=== PATIENT | male | born 1945 | race Caucasian/White ===

== ENCOUNTER 2017-12-09 06:02 | Day surgery (SDC) | payer OTHER ==
[2017-12-09] MEDS ORDERED: NA CHLORIDE 0.9% 500 ML ONE (06:37)
[2017-12-09] MEDS ORDERED: HEPA 1000U/500MLS 2,000 UNIT/1,000 ML BAG IV ONE (06:57)
[2017-12-09] MEDS ORDERED: HEPARIN 5000 UNIT/ML 1 ML VIAL ONE (07:36)
[2017-12-09] MEDS ORDERED: LIDOCAINE 1% MPF 2 ML AMPULE ONE (07:36)
[2017-12-09] MEDS ORDERED: MIDAZOLAM HCL 2 MG/2 ML INJ ONE (07:36)
[2017-12-09] MEDS ORDERED: NITROGLYCERIN/D5W 25 MG/250 ML BTL IV ONE (07:37)
[2017-12-09] MEDS ORDERED: NITROGLYCERIN 100 MCG/ML SYR (for cath lab use only) IV ONE (07:37)
[2017-12-09] MEDS ORDERED: NICARDIPINE HCL 25 MG/10 ML IV ONE (07:37)
[2017-12-09] MEDS ORDERED: FENTANYL CITR 100 MCG/2 ML ONE ×2 (07:37→09:23)
[2017-12-09] MEDS ORDERED: ATROPINE SULF 1 MG/10 ML SYR IV ONE (07:38)
[2017-12-09] MEDS ORDERED: NA CHLORIDE 0.9% 50 ML ONE (07:38)
--- NOTE | 2017-12-09 15:31 | OP ---
Surgeon: Kain Welch MD Procedure: Left heart catheterization and coronary angiogram. Findings: The patient has mild disease everywhere. No significant stenosis except in the obtuse mar ginal. It will be a difficult approach if we ever try to do a stent there, a lot of tortuosity. Rel atively small vessel. It is a smooth 74% stenosis. Does not look like an acute coronary syndrome ty pe lesion. Because the patient needs an emergency TURP procedure, we are not going to put a stent in now. We can do it later if he develops symptoms or has definite ischemia on a nuclear stress test i n that region. An LV gram was not done. There was too much ectopy induced by the catheter. His eje ction fraction is known to be normal by echocardiography. Procedure In Detail: The patient was brought to the cardiac production laborer in a fasting state, sedated wit h Versed and fentanyl. Prepared and draped. Right radial approach artery entered using a 21-gauge n eedle, a 0.021 inch diameter guidewire, 6-Polish Terumo sheath, modified Seldinger technique. A radi al cocktail was given consisting of nicardipine, heparin, nitroglycerin. We used a TIG catheter to a ngiogram right coronary, left coronary. We entered the left ventricle, but did not inject dye there. Pressures were impossible to take because of ectopy. We guided the TIG catheter into the ascending aorta using a J-wire and fluoroscopy. At the end of the procedure, decision was made not to stent t he obtuse marginal lesion. Catheter and wires were removed. Sheath removed. The arteriotomy closed with a TR band after the sheath gustavo sandhya. DARRIN/CAM Voice ID: [id number] Report ID: [id number]
== END 2017-12-09 10:58 | disposition home or self-care (01) ==
LOC: OR 06:02 → CCL 10:58
PROVIDERS: ATTEND Internal Medicine
DX: I25.10 Atherosclerotic heart disease of native coronary artery without angina pectoris (principal); F17.210 Nicotine dependence, cigarettes, uncomplicated; Z91.048 Other nonmedicinal substance allergy status
CPT/HCPCS: 93458; C1893; J0583; J1644; J2001; J2250; J3010 ×2

== ENCOUNTER 2017-12-09 16:28 | Inpatient (IN) | payer OTHER ==
[2017-12-09] MEDS ORDERED: LIDOCAINE VISCOUS 2% SOLN 15 ML UDC ONE (17:24)
[2017-12-09] MEDS ORDERED: NACL 0.9% IRR SOLN 2,000 ML IRR ONE (17:25)
[2017-12-09] MEDS ORDERED: FENTANYL CITR 100 MCG/2 ML ONE ×3 (17:32→22:51)
[2017-12-09] MEDS ORDERED: ONDANSETRON 4 MG/2 ML VIAL ONE (17:32)
[2017-12-09] MEDS ORDERED: CEFTRIAXONE/SWI 1gm 1 GM/10 ML SYR ONE (17:32)
[2017-12-09] MEDS ORDERED: NA CHLORIDE 0.9% 500 ML ONE (17:32)
[2017-12-09 18:20] LABS: ALT/SGPT 27 U/L (12-78); AST/SGOT 26 U/L (15-37); Absolute Lymphocytes (CBC) 1.2 K/uL (0.7-4.9); Absolute Monocytes 0.8 K/uL (0.1-1.3); Absolute Neutrophil 7.4 K/uL (1.8-8.0); Albumin 3.4 g/dL (3.4-5.0); Alkaline Phosphatase 62 U/L (45-117); BUN Blood Urea Nitrogen 9 mg/dL (7-18); Basophils % 0.3 % (0-1.3); Bicarbonate 25 mmol/L (21-32); Bilirubin Direct 0.3 mg/dL (0-0.2); Bilirubin Total 0.9 mg/dL (0.2-1.0); Eosinophils % 0.1 % (0-4.4); Glucose Level 114 mg/dL (74-106); Hematocrit 44.2 % (39.6-49.0); Lymphocytes % 12.3 % (15.3-44.8); MCH 33.3 pg (27.0-35.0); MCV 97.2 fL (80-100); MPV 10.2 fL (7.6-11.3); Potassium 3.4 mmol/L (3.5-5.1); Protein, Total 6.9 g/dL (6.4-8.2); RBC Red Blood Cell Count 4.55 M/uL (4.33-5.43); Sodium Level 134 mmol/L (136-145)
[2017-12-09 18:54] LABS: Urine Bacteria <20 /HPF (NONE SEEN); Urine RBC TNTC /HPF (NONE SEEN)
[2017-12-09 18:55] LABS: Urine Culture Reflex Order NOT NEEDED; Urine Mucus 2+ /HPF (NONE SEEN)
--- NOTE | 2017-12-09 18:57 | EDPHYS ---
Physician Documentation [facility] Name: Rohit Bravo Age: 72 yrs Sex: Male : 1945 Arrival Date: 12/09/2017 Time: 16:30 Bed 4 Private MD: Zina Martinez, A ED Physician William Ivey HPI: 12/09 18:47 This 72 yrs old Male presents to ER via Wheelchair with complaints of Urinary wa Problem. 18:47 The patient presents with hematuria and urinary retention. Onset: The symptoms/episode wa began/occurred 1 week(s) ago, told by his urologist to come to ED for arana. Modifying factors: The symptoms are alleviated by nothing, the symptoms are aggravated by urinating. Associated signs and symptoms: Pertinent positives: hematuria, Pertinent negatives: abdominal pain, dysuria, fever, nausea, vomiting. Severity of symptoms: At their worst the symptoms were moderate, in the emergency department the symptoms are unchanged. The patient has experienced a previous episode. The patient has been recently seen by a physician: Dr. Martinez, Urology. Historical: - Allergies: 16:38 No Known Allergies; sv - PMHx: 16:38 COPD; sv - PSHx: 16:38 Appendectomy; Tonsillectomy; Adenoids; back; sv - Immunization history:: Adult Immunizations up to date. - Social history:: Smoking status: Patient uses tobacco products, pt quit today. - Ebola Screening: : No symptoms or risks identified at this time. - Family history:: not pertinent. - Hospitalizations: : No recent hospitalization is reported. ROS: 18:48 Constitutional: Negative for fever, chills, and weight loss, Eyes: Negative for injury, wa pain, redness, and discharge, ENT: Negative for injury, pain, and discharge, Neck: Negative for injury, pain, and swelling, Cardiovascular: Negative for chest pain, palpitations, and edema, Respiratory: Negative for shortness of breath, cough, wheezing, and pleuritic chest pain, Abdomen/GI: Negative for abdominal pain, nausea, vomiting, diarrhea, and constipation, Back: Negative for injury and pain, MS/Extremity: Negative for injury and deformity, Skin: Negative for injury, rash, and discoloration, Neuro: Negative for headache, weakness, numbness, tingling, and seizure, Psych: Negative for depression, anxiety, suicide ideation, homicidal ideation, and hallucinations. 18:48 : Positive for urinary symptoms, small amounts, hematuria. 18:48 All other systems are negative. Exam: 18:49 Constitutional: This is a well developed, well nourished patient who is awake, alert, wa and in no acute distress. Head/Face: Normocephalic, atraumatic. Eyes: Pupils equal round and reactive to light, extra-ocular motions intact. Lids and lashes normal. Conjunctiva and sclera are non-icteric and not injected. Cornea within normal limits. Periorbital areas with no swelling, redness, or edema. ENT: Nares patent. No nasal discharge, no septal abnormalities noted. Tympanic membranes are normal and external auditory canals are clear. Oropharynx with no redness, swelling, or masses, exudates, or evidence of obstruction, uvula midline. Mucous membranes moist. Neck: Trachea midline, no thyromegaly or masses palpated, and no cervical lymphadenopathy. Supple, full range of motion without nuchal rigidity, or vertebral point tenderness. No Meningismus. Chest/axilla: Normal chest wall appearance and motion. Nontender with no deformity. No lesions are appreciated. Cardiovascular: Regular rate and rhythm with a normal S1 and S2. No gallops, murmurs, or rubs. Normal PMI, no JVD. No pulse deficits. Respiratory: Lungs have equal breath sounds bilaterally, clear to auscultation and percussion. No rales, rhonchi or wheezes noted. No increased work of breathing, no retractions or nasal flaring. Abdomen/GI: Soft, non-tender, with normal bowel sounds. No distension or tympany. No guarding or rebound. No evidence of tenderness throughout. Back: No spinal tenderness. No costovertebral tenderness. Full range of motion. Skin: Warm, dry with normal turgor. Normal color with no rashes, no lesions, and no evidence of cellulitis. MS/ Extremity: Pulses equal, no cyanosis. Neurovascular intact. Full, normal range of motion. Neuro: Awake and alert, GCS 15, oriented to person, place, time, and situation. Cranial nerves II-XII grossly intact. Motor strength 5/5 in all extremities. Sensory grossly intact. Cerebellar exam normal. Normal gait. Psych: Awake, alert, with orientation to person, place and time. Behavior, mood, and affect are within normal limits. 18:49 : Male external genitalia: noted blood in underwear and at tip of penile meatus, Bladder: distension, tenderness, that is mild. Vital Signs: 16:38 BP 135 / 74; Pulse 114; Resp 20; Temp 98.1; Pulse Ox 99% ; Weight 78.02 kg; Height 6 sv ft. 2 in. (187.96 cm); Pain 9/10; 18:00 BP 145 / 76; Pulse 92; Resp 18; Pulse Ox 99% on R/A; ph 18:51 BP 206 / 83; Pulse 91; Resp 18; Pulse Ox 94% on R/A; em1 19:15 BP 157 / 75; Pulse 92; Resp 18; Pulse Ox 98% on R/A; ph 16:38 Body Mass Index 22.08 (78.02 kg, 187.96 cm) sv Procedures: 18:[address] RN with MD supervision - [address] way arana. bloody urine noted. flushed to wa blood-tinged. pt tolerated procedure well. MDM: 17:03 Patient medically screened. wa 18:52 Response to treatment: the patient's symptoms have markedly improved after treatment. wv Physician consultation: Zina Martinez MD was called at 18:00. Admission orders: after a detailed discussion of the patient's condition and case, the admit orders are written by me. ED course: called for Dr. elizalde, cross-cover Dr. Gregorio did not return call x 2. will attempt to admit to Him Analyst and have Dr. Martinez consult. . 18:57 Differential diagnosis: UTI, urinary retention, Arana catheter problem, hematuria. Data wv reviewed: vital signs, nurses notes, lab test result(s). Test interpretation: by ED physician or midlevel provider: labs noted for K of 3.4. UA noted for 5-10 wbc. . 12/09 17:15 Order name: Basic Metabolic Panel; Complete Time: 18:56 wv 12/09 17:15 Order name: CBC with Diff; Complete Time: 18:56 wv 12/09 17:15 Order name: Hepatic Function; Complete Time: 18:57 wv 12/09 17:15 Order name: Urine Microscopic Only; Complete Time: 18:57 wv 12/09 17:18 Order name: Type And Screen; Complete Time: 18:57 wv 12/09 18:04 Order name: Urine Culture wv 12/09 18:49 Order name: ABO/RH no charge; Complete Time: 18:56 EDMT 12/09 19:15 Order name: CT Abd/Pelvis - W/Contrast wv 12/09 20:15 Order name: CT [facility] 12/09 20:39 Order name: Protime (+inr) bp 12/09 20:39 Order name: Ptt, Activated bp 12/09 21:15 Order name: Protime (+INR) [facility] 12/09 21:15 Order name: PTT, Activated Partial Thromb [facility] 12/09 17:15 Order name: IV Saline Lock; Complete Time: 17:22 wv 12/09 17:15 Order name: Labs collected and sent; Complete Time: 17:22 wv 12/09 17:15 Order name: Urine Dipstick-Ancillary (obtain specimen); Complete Time: 19:28 wv 12/09 17:15 Order name: Arana-Hematuria; Complete Time: 18:43 wv 12/09 17:18 Order name: Bladder Irrigation; Complete Time: 18:43 wv 12/09 19:36 Order name: Bladder Scanner; Complete Time: 21:30 linda Administered Medications: 18:00 Drug: NS 0.9% 500 ml Route: IV; Rate: bolus; Site: left forearm; ph 18:45 Follow up: Response: No adverse reaction; IV Status: Completed infusion ph 18:00 Drug: fentaNYL (PF) 50 mcg Route: IVP; Site: left forearm; ph 19:28 Follow up: Response: No adverse reaction ph 18:00 Drug: Zofran 4 mg Route: IVP; Site: left forearm; ph 19:27 Follow up: Response: No adverse reaction ph 18:30 Drug: Rocephin - (cefTRIAXone) 1 grams Route: IVPB; Infused Over: 30 mins; Site: left ph forearm; 19:28 Follow up: Response: No adverse reaction; IV Status: Completed infusion ph 19:10 Drug: fentaNYL (PF) 50 mcg Route: IVP; Site: left forearm; bp 20:54 Follow up: Response: Pain is unchanged, physician notified bp Disposition: 12/09/17 18:56 Hospitalization ordered by Riki Elizalde for Inpatient Admission. Preliminary diagnosis are Hematuria, Urinary retention. - Bed requested for Telemetry/MedSurg (Inpatient). - Status is Inpatient Admission. bp - Condition is Stable. - Problem is new. - Symptoms have improved. UTI on Admission? No Signatures: Dispatcher [employer] Andreina Gloria, Elma Scott RN, RN RN sv Anderson, Corey, MD MD cha Hall, Patricia, RN RN ph Dariel Bettencourt, PA PA William Cruz MD MD wa Peltier, Brian, RN RN bp Corrections: (The following items were deleted from the chart) 19:54 18:56 Hospitalization Ordered by Tonie Nesbitt MD for Inpatient Admission. Preliminary cp diagnosis is Hematuria; Urinary retention. Bed requested for Telemetry/MedSurg (Inpatient). Status is Inpatient Admission. Condition is Stable. Problem is new. Symptoms have improved. UTI on Admission? No. wv 20:25 19:54 12/09/2017 18:56 Hospitalization Ordered by Riki Elizalde MD for Inpatient kl Admission. Preliminary diagnosis is Hematuria; Urinary retention. Bed requested for Telemetry/MedSurg (Inpatient). Status is Inpatient Admission. Condition is Stable. Problem is new. Symptoms have improved. UTI on Admission? No. cp 21:32 20:25 12/09/2017 18:56 Hospitalization Ordered by Riki Elizalde MD for Inpatient bp Admission. Preliminary diagnosis is Hematuria; Urinary retention. Bed requested for Telemetry/MedSurg (Inpatient). Status is Inpatient Admission. Condition is Stable. Problem is new. Symptoms have improved. UTI on Admission? No. kl
--- NOTE | 2017-12-09 18:57 | ER ---
Nurse's Notes [facility] Name: Rohit Bravo Age: 72 yrs Sex: Male : 1945 Arrival Date: 12/09/2017 Time: 16:30 Bed 4 Private MD: Zina Martinez A Diagnosis: Hematuria;Urinary retention Presentation: 12/09 16:36 Presenting complaint: states: sent by Dr Martinez to have a roque catheter placed for sv hematuria, pt is to have surgery next week for TURP. Pt also had a cardiac catheterization. Transition of care: patient was not received from another setting of care. Onset of symptoms was December 09, 2017. Care prior to arrival: None. 16:36 Method Of Arrival: Wheelchair sv 16:36 Acuity: DIAZ 3 sv 19:27 Risk Assessment: Do you want to hurt yourself or someone else? Patient reports no ph desire to harm self or others. Initial Sepsis Screen: Does the patient meet any 2 criteria? No. Patient's initial sepsis screen is negative. Does the patient have a suspected source of infection? No. Patient's initial sepsis screen is negative. Historical: - Allergies: 16:38 No Known Allergies; sv - PMHx: 16:38 COPD; sv - PSHx: 16:38 Appendectomy; Tonsillectomy; Adenoids; back; sv - Immunization history:: Adult Immunizations up to date. - Social history:: Smoking status: Patient uses tobacco products, pt quit today. - Ebola Screening: : No symptoms or risks identified at this time. - Family history:: not pertinent. - Hospitalizations: : No recent hospitalization is reported. Screenin:26 Abuse screen: Denies threats or abuse. Denies injuries from another. Nutritional ph screening: No deficits noted. Tuberculosis screening: No symptoms or risk factors identified. Fall Risk None identified. Assessment: 17:00 General: Appears in no apparent distress. uncomfortable, slender, well groomed, ph Behavior is calm, cooperative, appropriate for age. Pain: Complains of pain in suprapubic area. Neuro: Level of Consciousness is awake, alert, obeys commands, Oriented to person, place, time, situation, Denies weakness dizziness. Cardiovascular: Capillary refill < 3 seconds in bilateral fingers Patient's skin is warm and dry. Respiratory: Airway is patent Respiratory effort is even, unlabored, Respiratory pattern is regular, symmetrical. GI: Abdomen is flat, non-distended, Reports lower abdominal pain, Patient currently denies diarrhea, nausea, vomiting. : Reports pain in suprapubic area blood in urine w/ clots Denies burning with urination, inability to void. Derm: Skin is intact, is healthy with good turgor, Skin is pink, warm \T\ dry. Musculoskeletal: Circulation, motion, and sensation intact. Range of motion: intact in all extremities. 18:15 Reassessment: Patient appears in no apparent distress at this time. Patient and/or ph family updated on plan of care and expected duration. Pain level reassessed. Patient is alert, oriented x 3, equal unlabored respirations, skin warm/dry/pink. Catheter inserted for bladder irrigation, pt tolerated well, urine noted to be marlena blood w/ clots present. 19:00 Reassessment: RECD REPORT FROM MICKI CARPIO. 72YO WM P/W URINARY PROBLEMS. 3WAY ROQUE IN bp PLACE, PT PASSING MARLENA HEMATURIA WITH LARGE CLOTS, REQUIRING FREQUENT IRRIGATION TO CLEAR CLOTS. CT PENDING, PER URO C/S. 19:30 Reassessment: UNABLE TO IRRIGATE ROQUE, PT TOLERATING POORLY, C/O BLADDER SPASMS. bp NOTIFIED. PT TO CT, BLADDER SCAN PENDING. 20:30 Reassessment: DR PHILLIPS RESPONDED TO C/S. PER DR MARTINEZ, PT NEEDS STAT OR. OR TEAM PAGED bp BY DR MARTINEZ, C/S FOR PROCEDURE COMPLETED, PT AND FAMILY EXPRESS UNDERSTANDING OF PROCEDURE AND RISKS VS BENEFITS. 21:31 Reassessment: OR NURSE AT B/S, PT TRANSPORTED ROBERT. bp Vital Signs: 16:38 BP 135 / 74; Pulse 114; Resp 20; Temp 98.1; Pulse Ox 99% ; Weight 78.02 kg; Height 6 sv ft. 2 in. (187.96 cm); Pain 9/10; 18:00 BP 145 / 76; Pulse 92; Resp 18; Pulse Ox 99% on R/A; ph 18:51 BP 206 / 83; Pulse 91; Resp 18; Pulse Ox 94% on R/A; em1 19:15 BP 157 / 75; Pulse 92; Resp 18; Pulse Ox 98% on R/A; ph 16:38 Body Mass Index 22.08 (78.02 kg, 187.96 cm) sv ED Course: 16:30 Patient arrived in ED. sb2 16:30 Zina Martinez MD is Private Physician. sb2 16:37 Triage completed. sv 16:39 Arm band placed on right wrist. sv 16:53 Inserted saline lock: 22 gauge in left forearm, using aseptic technique. Blood la1 collected. 17:03 William Ivey MD is Attending Physician. wa 17:21 Chiquis Benson RN is Primary Nurse. ph 17:48 3-way catheter inserted, using sterile technique, 20 Fr. Specimen obtained. em1 18:30 Patient admitted, IV remains in place. Bladder irrigated via Roque with 3 liter normal ph saline returned w/ clots Patient tolerated well. 18:55 Tonie Nesbitt MD is Hospitalizing Provider. wa 19:27 Patient has correct armband on for positive identification. Placed in gown. Bed in low ph position. Call light in reach. Side rails up X 1. Pulse ox on. NIBP on. Warm blanket given. 19:54 Riki Saucedo MD is Hospitalizing Provider. cp 20:45 Inserted saline lock: 20 gauge in right forearm, using aseptic technique. Blood bp collected. 21:30 No provider procedures requiring assistance completed. Patient admitted, IV remains in bp place. Administered Medications: 18:00 Drug: NS 0.9% 500 ml Route: IV; Rate: bolus; Site: left forearm; ph 18:45 Follow up: Response: No adverse reaction; IV Status: Completed infusion ph 18:00 Drug: fentaNYL (PF) 50 mcg Route: IVP; Site: left forearm; ph 19:28 Follow up: Response: No adverse reaction ph 18:00 Drug: Zofran 4 mg Route: IVP; Site: left forearm; ph 19:27 Follow up: Response: No adverse reaction ph 18:30 Drug: Rocephin - (cefTRIAXone) 1 grams Route: IVPB; Infused Over: 30 mins; Site: left ph forearm; 19:28 Follow up: Response: No adverse reaction; IV Status: Completed infusion ph 19:10 Drug: fentaNYL (PF) 50 mcg Route: IVP; Site: left forearm; bp 20:54 Follow up: Response: Pain is unchanged, physician notified bp Output: 18:35 Urine: 2000ml (Roque); Total: 2000ml. ph 18:45 Urine: 800ml (Roque); Total: 2800ml. ph 19:00 Urine: 650ml (Roque); Total: 3450ml. ph Outcome: 18:56 Decision to Hospitalize by Provider. wa 21:31 Admitted to OR accompanied by nurse, family with patient, via stretcher, with chart. bp 21:31 Condition: stable 21:31 Instructed on the need for admit. 21:32 Patient left the ED. bp Signatures: Elma Araujo, RN RN Preet Bates em1 Torsten Mccarthy RN RN la1 Chiquis Benson RN RN ph Dariel Bettencourt PA PA cp Appiah, William, MD MD wa Peltier, Brian RN RN Randa Aldrich sb2 Corrections: (The following items were deleted from the chart) 18:21 18:18 3-way catheter inserted, using sterile technique, 20 Fr. Specimen obtained. em1 em1 19:28 08:00 fentaNYL (PF) 50 mcg IVP in left forearm ph ph
--- NOTE | 2017-12-09 20:14 | RAD REPORT ---
EXAM DESCRIPTION: CT - Abdomen Pelvis W/Wo Contrast - 12/09/2017 7:58 pm CLINICAL HISTORY: hematuria. pelvic pain. urinary retention COMPARISON: Abdomen Pelvis W/Wo Contrast dated 09/07/2017 TECHNIQUE: Axial non-contrast CT imaging was performed. Following this, biphasic contrast enhanced i maging through the abdomen and pelvis was performed with coronal and sagittal reformatted images. All CT scans are performed using dose optimization technique as appropriate and may include automated exposure control or mA/KV adjustment according to patient size. FINDINGS: Prominent emphysematous changes are present in both lung bases. A small cyst is present in the right fluid of the liver measuring 11 mm. No aggressive liver lesion o r biliary dilatation. The spleen, pancreas and adrenal glands are normal. The left kidney medially de monstrates a small cortical cyst measuring 12 mm. No hydronephrosis of either kidney identified. A Neville catheter is in place within the urinary bladder. The bulb is present in the lumen of the blad loco. There is moderate soft tissue material within the bladder surrounding the Neville bulb and cathete r most compatible with a blood clot. This results in mild dilatation of the distal left ureter, howev er, no significant obstructive uropathy is suspected. No bowel obstruction, free fluid or abscess. No fracture or aggressive marrow process is seen. IMPRESSION: A significant amount of soft tissue is seen surrounding Neville catheter bulb within the u rinary bladder likely representing blood clot. No significant obstructive uropathy is identified.
--- NOTE | 2017-12-09 20:35 | P.HP ---
Certification for Inpatient Patient admitted to: Inpatient With expected LOS: >2 Midnights Practitioner: I am a practitioner with admitting privileges, knowledge of patient current condition, hospital course, and medical plan of care. Services: Services provided to patient in accordance with Admission requirements found in Title 42 Section 412.3 of the Code of Federal Regulations Patient History Date of Service: 12/09/17 Reason for admission: Gross hematuria History of Present Illness: Mr Bravo is a 72 year male with history of urinary problems, having recurrent episodes of hematuria. He was follow-up by Dr. Martinez, who planned to do TURP, however he needed cardiac clearance. Today the patient had a left heart catheterization showing normal coronary arteries except obtuse marginal which has 74% stenosis. He was decided to not place a stent at this time since the patient will have urology procedure. About 3 weeks ago, he started with gross hematuria again. Today hematuria got was and he also started to pass some clots. He was complaining of significant pain as well due to urethral obstruction with clots. He went to see Dr. Martinez, who after evaluation referred him to ER to start bladder irrigation. He denied any fever or chills. Allergies adhesive tape Adverse Reaction (Verified 12/06/17 15:54) skin tears Home medications list reviewed: Yes Home Medications: Amoxicillin/Potassium Clav [Amox-Clav 500-125 mg Tablet] 1 each PO BID 12/06/17 Aspirin [Aspirin EC 81 MG] 81 mg PO DAILY 12/06/17 Ipratropium/Albuterol Sulfate [Combivent Respimat Inhal [place]] 4 gm IH QID 12/06 Multivit-Min/FA/Lycopen/Lutein [Centrum Silver Men Tablet] 1 each PO DAILY 12/06 - Past Medical/Surgical History -: Coronary artery disease -: Cardiac catheterization -: Appendectomy -: Tonsillectom -: Adenoids -: back - Social History Smoking Status: Current every day smoker Counseled patient to stop smoking for: less than 10 minutes Smoking therapy provided: No Patient receptive to therapy: No Alcohol use: Yes CD- Drugs: No Place of Residence: Home Review of Systems 10-point ROS is otherwise unremarkable Physical Examination - Physical Exam General: Alert, Mild distress (Due to pain in pelvic area) HEENT: Atraumatic, PERRLA, Mucous membr. moist/pink, EOMI, Sclerae nonicteric Neck: Supple, 2+ carotid pulse no bruit, No LAD, Without JVD or thyroid abnormality Respiratory: Clear to auscultation bilaterally, Normal air movement Cardiovascular: Regular rate/rhythm, Normal S1 S2 Gastrointestinal: Normal bowel sounds, No tenderness Musculoskeletal: No tenderness Integumentary: No rashes Neurological: Normal speech, Normal strength at 5/5 x4 extr, Normal tone, Normal affect Lymphatics: No axilla or inguinal lymphadenopathy - Studies Laboratory Data (last 24 hrs) 12/09/17 17:40: WBC 9.4, Hgb 15.1 D, Hct 44.2 D, Plt Count 223 12/09/17 17:40: Sodium 134 L, Potassium 3.4 L, BUN 9, Creatinine 0.80, Glucose 114 H, Total Bilirubin 0.9, AST 26, ALT 27, Alkaline Phosphatase 62 Assessment and Plan - Problems (Diagnosis) (1) Gross hematuria Current Visit: Yes Status: Acute (2) CAD (coronary artery disease) Current Visit: Yes Status: Acute Qualifiers: Coronary Disease-Associated Artery/Lesion type: [place] artery [place] vs. transplanted heart: [place] heart Associated angina: without angina Qualified Code(s): I25.10 - Atherosclerotic heart disease of [place] coronary artery without angina pectoris (3) COPD (chronic obstructive pulmonary disease) Current Visit: Yes Status: Acute Qualifiers: COPD type: unspecified COPD Qualified Code(s): J44.9 - Chronic obstructive pulmonary disease, unspecified - Plan The patient will be admitted to the hospital due to gross hematuria. Will continue with bladder irrigation. H&H are within normal limits, continue monitoring. Dr. Martinez will see the patient in a.m. will keep the patient NPO for potential cystoscopy to evaluate hematuria and possible TURP. CT abdomen and pelvis was done, report is pending. - Advance Directives Does patient have a Living Will: No Does patient have a Durable POA for Healthcare: No - Code Status/Comfort Care Code Status Assessed: Yes Code Status: Full Code
[2017-12-09] MEDS ORDERED: ONDANSETRON 4 MG/2 ML VIAL IV PRN (20:40)
[2017-12-09] MEDS ORDERED: ACETAMINOPHEN 500 MG TAB PO PRN (20:40)
[2017-12-09] MEDS: NA CHLORIDE 0.9% 1,000 ML IV SCH (21:00)
[2017-12-09 21:13] LABS: Protime INR 1.12
[2017-12-09] MEDS ORDERED: GENTAMICIN 100 MG/100 ML BAG 100 MG/100 ML BAG IV ONE (21:29)
[2017-12-09] MEDS ORDERED: Ringers Lactate 1,000 ML IV ONE ×2 (21:29→22:34)
[2017-12-09] MEDS ORDERED: SUCCINYLCHOLINE 20 MG/ML (10 ML) IV ONE (21:36)
[2017-12-09] MEDS ORDERED: PROPOFOL 200 MG/20 ML VIAL IV ONE (21:45)
[2017-12-09] MEDS: MEPERIDINE HCL 50 MG/ML AMP ONE ×2 (23:12→23:18)
[2017-12-09] MEDS ORDERED: MEPERIDINE HCL 50 MG/ML AMP ONE (23:32)
[2017-12-09] MEDS ORDERED: SODIUM CHL 0.9% IRR SOLN 2000 ML IRR SCH (23:45)
[2017-12-10] MEDS: MORPHINE 2 MG/ML SYR IV PRN ×2 (01:53→05:27)
[2017-12-10] MEDS: NA CHLORIDE 0.9% 1,000 ML IV SCH (03:57)
[2017-12-10 05:05] LABS: Absolute Lymphocytes (CBC) 1.9 K/uL (0.7-4.9); Absolute Monocytes 1.4 K/uL (0.1-1.3); Absolute Neutrophil 9.7 K/uL (1.8-8.0); Basophils % 0.4 % (0-1.3); Eosinophils % 0.6 % (0-4.4); Hematocrit 39.3 % (39.6-49.0); Lymphocytes % 14.5 % (15.3-44.8); MCH 33.4 pg (27.0-35.0); MCV 96.7 fL (80-100); MPV 9.5 fL (7.6-11.3); Monocytes % 10.5 % (3.3-12.3); RBC Red Blood Cell Count 4.07 M/uL (4.33-5.43)
[2017-12-10 05:17] LABS: BUN Blood Urea Nitrogen 5 mg/dL (7-18); Bicarbonate 30 mmol/L (21-32); Glucose Level 88 mg/dL (74-106); Magnesium 1.9 mg/dL (1.8-2.4); Potassium 4.4 mmol/L (3.5-5.1); Sodium Level 136 mmol/L (136-145)
[2017-12-10] MEDS ORDERED: SMZ./TMP. 800/160 MG TABLET PO SCH (09:00)
[2017-12-10] MEDS ORDERED: MAGNESIUM HYDROXIDE 8% 30 ML PO PRN (09:16)
--- NOTE | 2017-12-10 12:57 | DS ---
Discharge Diagnoses: 1.Hematuria, resolved. 2.History of chronic obstructive pulmonary disease. 3.History of coronary artery disease. Consult: Urology. Procedure: CT of the abdomen and pelvis showed significant amount of soft tissue seen surrounding Fo troy catheter, pulp within the urinary bladder likely representing blood clots. No significant obstru ctive uropathy identified. History Of Present Illness: Please refer to the H and P. Hospital Course: Initially, the patient presented with a history of recurrent episode of hematuria. He was followed by Dr. Martinez, who was planning a TURP procedure for the patient after cardiac cleara nce, which patient had on day of admission with a cardiac cath. He was seen today at Dr. Martinez's off ice, and he was asked to come to emergency room for bladder irrigation given his gross hematuria. Pr ocedure done last night, and Dr. Martinez advised to discharge the patient home on Bactrim for 5 days DS . Ultram for pain control. He will follow up with Dr. Martinez in the office on Tuesday. The patient t o continue having Neville catheter as before. His aspirin was on hold due to his hematuria and will ke ep it on hold until get cleared by Dr. Martinez and then he can resume his aspirin given his history of coronary artery disease. Discharge Condition: Stable. Discharged Diet: Cardiac. Discharge Followup: With Dr. Martinez on Tuesday. Followup with his primary care physician this week. Discharge Medication: Bactrim DS 1 tablet every day for 5 days. Ultram as needed. Aspirin on hold until hematuria resolves. Combivent inhaler every 6 hours. Multivitamin as before. Physical Examination: Vital Signs: Currently, blood pressure is 148/69, respiratory rate 18, pulse 81, temperature 97.8. General: The patient is alert and oriented x3. Does not look in any distress. HEENT: Atraumatic, normocephalic. PERRLA. Oral mucosa is moist. Neck: Supple. No JVD. Respiratory: Chest is clear to auscultation. Good air entry. Heart: Regular rate and rhythm S1, S2 normal. No gallop or murmur. Abdomen: Soft, nontender. No masses. No hepatosplenomegaly. Positive bowel sounds. Extremities: No clubbing, cyanosis, or edema. Neville catheter with pink urine in the bag. CRISTAL/MODL Voice ID: [id number] Report ID: [id number]
--- NOTE | 2017-12-10 15:09 | PN ---
Subjective: The patient is feeling well. He is doing much better today. Objective: Urine is clear. H and H stable. Chem 7 looks okay. His potassium is better. Assessment: Postop day 1, status post TURBT, partial. Plan: Patient to ambulate. Gave MOM 30 cc for bowel movement. We will plug the third port. Okay t o discharge patient. I discussed the case with Dr. Welch. If the patient needs a radical cystectom y, he is going to need to have a bypass done prior to surgery. If he receive a cardiac stent, he johana l be 6 months of anticoagulation. He would not be able to wait that long for surgery. He will follo w up with me on Tuesday morning for chemo for the bladder since none was available over the weekend in the hospital after his TURBT. His pathology will be checked, most likely sent to [place] for a seco cindy opinion and then if the tumor is superficial, he will need a re-resection. If the tumor is muscle invasive, he will need CABG plus radical cystectomy. YURY/CAM Voice ID: [id number] Report ID: [id number]
== END 2017-12-10 13:20 | disposition home or self-care (01) | DRG 670 ==
LOC: ER 16:28 → ERHOLD 19:04 → 2ND 22:02
PROVIDERS: ADMIT Internal Medicine; ATTEND Internal Medicine
PROC: 0VB08ZX Excision of Prostate, Via Natural or Artificial Opening Endoscopic, Diagnostic (ICD-10-PCS; 2017-12-09)
PROC: 0TBB8ZX Excision of Bladder, Via Natural or Artificial Opening Endoscopic, Diagnostic (ICD-10-PCS; principal; 2017-12-09 21:30)
DX: C67.9 Malignant neoplasm of bladder, unspecified (principal); R31.0 Gross hematuria; J44.9 Chronic obstructive pulmonary disease, unspecified; I25.10 Atherosclerotic heart disease of native coronary artery without angina pectoris; R39.12 Poor urinary stream; R33.9 Retention of urine, unspecified; N42.9 Disorder of prostate, unspecified; F17.210 Nicotine dependence, cigarettes, uncomplicated; Z91.048 Other nonmedicinal substance allergy status; Z79.82 Long term (current) use of aspirin; Z91.19 Patient's noncompliance with other medical treatment and regimen
CPT/HCPCS: 36415; 51700; 71046; 74178; 80048; 80076; 81003; 81015; 83735; 85025; 85610; 85730; 86850; 86900; 86901; 87086; 87088; 88300; 88305; 88307; 93458; 96365; 96375; 99285; C1893; J0330; J0583; J0696; J1580; J1644; J2001; J2175; J2250; J2270; J2405; J3010; J7030; Q9967

== ENCOUNTER 2018-01-31 06:05 | Day surgery (SDC) | payer OTHER ==
[2018-01-31] MEDS ORDERED: Ringers Lactate 1,000 ML IV ONE (07:06)
[2018-01-31] MEDS ORDERED: LIDOCAINE 2% MPF 5 ML VIAL ONE (08:01)
[2018-01-31] MEDS ORDERED: PROPOFOL 200 MG/20 ML VIAL IV ONE (08:02)
--- NOTE | 2018-01-31 08:41 | ENDO RPT ---
[address], [address] COLONOSCOPY PROCEDURE REPORT EXAM DATE: 01/31/2018 PATIENT NAME: Rohit Bravo MR #: [id number] BIRTHDATE: 1945 ATTENDING: William Jeong Dr STATUS: outpatient HOTEL SALES MANAGER: Fe Mcgee RN INDICATIONS: The patient is a 72 yr old Male here for a colonoscopy due to family history of colon polyps and weight loss PROCEDURE PERFORMED: Colonoscopy with hot biopsy polypectomy and Colonoscopy with snare polypectomy MEDICATIONS: Per Anesthesia. ESTIMATED BLOOD LOSS: None CONSENT: The patient understands the risks and benefits of the procedure and understands that these risks include, but are not limited to: sedation, allergic reaction, infection, perforation and/or bleeding. Alternative means of evaluation and treatment include, among others: physical exam, x-rays, and/or surgical intervention. The patient elects to proceed with this endoscopic procedure. DESCRIPTION OF PROCEDURE: During intra-op preparation period all mechanical medical equipment was checked for proper function. Hand hygiene and appropriate measures for infection prevention was taken. Procedure, possible complications, alternatives including, but not limited to possibility of bleeding, perforation, tear, infection, sepsis, need for surgery, need for blood transfusion, were explained to the patient. After the risks, benefits and alternatives of the procedure were thoroughly explained, Informed consent was verified, confirmed and timeout was successfully executed by the treatment team. The patient was placed in the left lateral position. A digital rectal exam was performed and revealed an enlarged prostate. After appropriate level of anesthesia, the scope was passed. The EC-[id number] ([id number]) endoscope was introduced through the anus and advanced to the terminal ileum which was intubated for a short distance. The quality of the prep was good. The instrument was then slowly withdrawn as the colon was fully examined. Scope withdrawal time was 9 minutes. COLON FINDINGS: A sessile polyp measuring 3 mm in size was found at the ileocecal valve. A polypectomy was performed using hot forceps. A sessile polyp measuring 1 cm in size was found in the ascending colon. A polypectomy was performed with a cold snare. Two pedunculated polyps ranging between 5-9mm in size were found in the rectum. A polypectomy was performed using snare cautery. Mild diverticulosis was noted in the sigmoid colon. Small internal hemorrhoids were found. Retroflexed views revealed no abnormalities. The scope was then completely withdrawn from the patient and the procedure terminated. ADVERSE EVENTS: There were no complications. IMPRESSIONS: 1. 3 mm sessile polyp at the ileocecal valve; polypectomy was performed using hot forceps 2. 1 cm sessile polyp in the ascending colon; polypectomy was performed with a cold snare snare cautery 4. Mild diverticulosis in the sigmoid colon 5. Small internal hemorrhoids 6. Intubation to terminal ileum RECOMMENDATIONS: 1. await biopsy results 2. avoid NSAIDS for 2 weeks 3. fiber rich diet RECALL: Return in 1 year(s) for Colonoscopy. William Jeong Dr eSigned: William Jeong Dr 01/31/2018 8:41 AM cc: Riki Saucedo CPT CODES: ICD9 CODES: 1. 600.0 Hypertrophy (benign) of prostate 2. 211.3 Benign neoplasm of colon 3. 569.0 Anal and rectal polyp PATIENT NAME: Rohit Bravo MR#: [id number]
--- NOTE | 2018-01-31 08:44 | ENDO RPT ---
[address], [address] COLONOSCOPY PROCEDURE REPORT EXAM DATE: 01/31/2018 PATIENT NAME: Rohit Bravo MR #: [id number] BIRTHDATE: 1945 ATTENDING: William Jeong Dr STATUS: outpatient [employer]ERSE[employer] DEPARTMENT SUPERVISOR: Fe Mcgee RN INDICATIONS: The patient is a 72 yr old Male here for a colonoscopy due to positive Cologuard, family history of colon polyps and weight loss PROCEDURE PERFORMED: Colonoscopy with hot biopsy polypectomy and Colonoscopy with snare polypectomy MEDICATIONS: Per Anesthesia. ESTIMATED BLOOD LOSS: None CONSENT: The patient understands the risks and benefits of the procedure and understands that these risks include, but are not limited to: sedation, allergic reaction, infection, perforation and/or bleeding. Alternative means of evaluation and treatment include, among others: physical exam, x-rays, and/or surgical intervention. The patient elects to proceed with this endoscopic procedure. DESCRIPTION OF PROCEDURE: During intra-op preparation period all mechanical medical equipment was checked for proper function. Hand hygiene and appropriate measures for infection prevention was taken. Procedure, possible complications, alternatives including, but not limited to possibility of bleeding, perforation, tear, infection, sepsis, need for surgery, need for blood transfusion, were explained to the patient. After the risks, benefits and alternatives of the procedure were thoroughly explained, Informed consent was verified, confirmed and timeout was successfully executed by the treatment team. The patient was placed in the left lateral position. A digital rectal exam was performed and revealed an enlarged prostate. After appropriate level of anesthesia, the scope was passed. The EC-[id number] ([id number]) endoscope was introduced through the anus and advanced to the terminal ileum which was intubated for a short distance. The quality of the prep was good. The instrument was then slowly withdrawn as the colon was fully examined. Scope withdrawal time was 9 minutes. COLON FINDINGS: A sessile polyp measuring 3 mm in size was found at the ileocecal valve. A polypectomy was performed using hot forceps. A sessile polyp measuring 1 cm in size was found in the ascending colon. A polypectomy was performed with a cold snare. Two pedunculated polyps ranging between 5-9mm in size were found in the rectum. A polypectomy was performed using snare cautery. Mild diverticulosis was noted in the sigmoid colon. Small internal hemorrhoids were found. Retroflexed views revealed no abnormalities. The scope was then completely withdrawn from the patient and the procedure terminated. ADVERSE EVENTS: There were no complications. IMPRESSIONS: 1. 3 mm sessile polyp at the ileocecal valve; polypectomy was performed using hot forceps 2. 1 cm sessile polyp in the ascending colon; polypectomy was performed with a cold snare snare cautery 4. Mild diverticulosis in the sigmoid colon 5. Small internal hemorrhoids 6. Intubation to terminal ileum RECOMMENDATIONS: 1. await biopsy results 2. avoid NSAIDS for 2 weeks 3. fiber rich diet RECALL: Return in 1 year(s) for Colonoscopy. William Jeong Dr eSigned: William Jeong Dr 01/31/2018 8:43 AM Revised: 01/31/2018 8:43 AM cc: Riki Saucedo CPT CODES: ICD9 CODES: 1. 600.0 Hypertrophy (benign) of prostate 2. 211.3 Benign neoplasm of colon 3. 569.0 Anal and rectal polyp PATIENT NAME: Rohit Bravo MR#: [id number]
== END 2018-01-31 09:15 | disposition home or self-care (01) ==
LOC: OR 06:05
PROVIDERS: ATTEND Internal Medicine Gastroenterology
PROC: 0DBK8ZX Excision of Ascending Colon, Via Natural or Artificial Opening Endoscopic, Diagnostic (ICD-10-PCS; 2018-01-31)
PROC: 0DBP8ZX Excision of Rectum, Via Natural or Artificial Opening Endoscopic, Diagnostic (ICD-10-PCS; 2018-01-31)
PROC: 0DBC8ZX Excision of Ileocecal Valve, Via Natural or Artificial Opening Endoscopic, Diagnostic (ICD-10-PCS; principal; 2018-01-31 08:15)
DX: D12.2 Benign neoplasm of ascending colon (principal); D12.0 Benign neoplasm of cecum; D12.8 Benign neoplasm of rectum; K62.1 Rectal polyp; K57.90 Diverticulosis of intestine, part unspecified, without perforation or abscess without bleeding; K64.8 Other hemorrhoids; R63.4 Abnormal weight loss; J44.9 Chronic obstructive pulmonary disease, unspecified; Z85.51 Personal history of malignant neoplasm of bladder; Z87.891 Personal history of nicotine dependence; Z83.71 Family history of colonic polyps
CPT/HCPCS: 88305